=== PATIENT | male | born 1950 | race Caucasian/White ===

== ENCOUNTER → 2017-03-31 | Outpatient (CLI) | payer MEDICARE | END | disposition home or self-care (01) | LOC: LAB 11:20 | PROVIDERS: ATTEND Urology | DX: Z12.5 Encounter for screening for malignant neoplasm of prostate (principal); C61 Malignant neoplasm of prostate | CPT/HCPCS: 36415; G0103 ==

== ENCOUNTER → 2017-10-13 | Outpatient (CLI) | payer MEDICARE ==
[2017-10-13 11:51] LABS: PROSTATE SPECIFIC ANTIGEN 0.13 ng/mL (0.00-4.00)
== END | disposition home or self-care (01) ==
LOC: LAB 10:29
DX: Z12.5 Encounter for screening for malignant neoplasm of prostate (principal); C61 Malignant neoplasm of prostate
CPT/HCPCS: 36415; G0103

== ENCOUNTER 2019-02-11 21:58 | Inpatient (IN) | payer MEDICARE ==
[~2019-02-11] VITALS: Ht 180.3 cm; Wt 114.0 kg
[2019-02-11 22:41] LABS: BASO # 0.1 x10^3/uL (0.0-0.2); BASO % 1 % (0-3); EOS # 0.2 x10^3/uL (0.0-0.7); EOS % 3 % (0-3); HEMATOCRIT 43.6 % (39.0-53.0); LYMPH # 1.1 x10^3/uL (1.0-4.8); LYMPH % 19 % (24-48); MEAN CORPUSCULAR HEMOGLOBIN 32 pg (25-35); MEAN CORPUSCULAR HGB CONC 35 g/dL (31-37); MEAN CORPUSCULAR VOLUME 93 fL (79-100); MONO # 0.4 x10^3/uL (0.0-1.1); MONO % 7 % (0-9); NEUT # 3.8 x10^3uL (1.8-7.7); NEUT % 69 % (31-73); PLATELET COUNT 118 x10^3/uL (140-400); RED BLOOD COUNT 4.68 x10^6/uL (4.30-5.70); RED CELL DISTRIBUTION WIDTH 14.2 % (11.5-14.5); WHITE BLOOD COUNT 5.5 x10^3/uL (4.0-11.0)
[2019-02-11] MEDS ORDERED: IV NORMAL SALINE 1000ML BAG 1,000 ML IV ONE (22:45)
[2019-02-11] MEDS ORDERED: ASPIRIN 325 MG TABLET PO ONE (22:45)
[2019-02-11 22:50] LABS: PROTHROMBIN TIME PATIENT 23.2 SEC (11.7-14.0)
[2019-02-11 22:53] LABS: CALCIUM 9.6 mg/dL (8.5-10.1); CREATININE 1.1 mg/dL (0.7-1.3); GFR 66.4; POTASSIUM 4.6 mmol/L (3.5-5.1)
[2019-02-11 22:59] LABS: ALBUMIN 3.7 g/dL (3.4-5.0); TOTAL PROTEIN 7.3 g/dL (6.4-8.2)
[2019-02-11 23:06] LABS: CREATINE KINASE 74 U/L (39-308)
[2019-02-11 23:28] LABS: BILIRUBIN,URINE NEGATIVE (NEG); CLARITY,URINE CLEAR; COLOR,URINE YELLOW; NITRITE,URINE NEGATIVE (NEG); PROTEIN,URINE NEGATIVE (NEG-TRACE)
[2019-02-11 23:35] LABS: BACTERIA,URINE 0 /HPF (0-FEW); RBC,URINE 0 /HPF (0-2); WBC,URINE 0 /HPF (0-4)
[2019-02-11] MEDS ORDERED: CONTRAST GIVEN. MC PRN (23:45)
[2019-02-11] MEDS ORDERED: IOHEXOL 350 MG/ML 100 ML VIAL. IV ONE (23:45)
[2019-02-11] MEDS ORDERED: FUROSEMIDE 40 MG/4 ML VIAL. IVP ONE (23:45)
[2019-02-12] VITALS (8 sets, daily range): BP systolic 145–186; BP diastolic 73–105
--- NOTE | 2019-02-12 00:16 | RAD ---
PQRS Compliance Statement: One or more of the following individualized dose reduction techniques were utilized for this examination: 1. Automated exposure control 2. Adjustment of the mA and/or kV according to patient size 3. Use of iterative reconstruction technique CT CHEST WITH CONTRAST, PULMONARY ANGIOGRAM History: Dyspnea on exertion. History of DVT. Comparison: None. Technique: Helical CT of the chest was performed after the administration of 100 cc of Omnipaque 350 intravenous contrast according to PE protocol. Axial and coronal reconstructions were obtained. 3-D MIP images were constructed to better evaluate the pulmonary arteries. Findings: Pulmonary arteries are adequately opacified. There is no evidence of pulmonary embolism. There is mediastinal and bilateral hilar adenopathy. There is ectasia of the ascending thoracic aorta. Mild left gynecomastia. There is coronary artery disease. There is cardiomegaly. Mitral annular calcification. No pericardial effusion. There are moderate bilateral pleural effusions. Respiratory motion artifact. Central airways are patent. There is moderate interlobular septal thickening. There are bilateral groundglass opacities. There is reflux of contrast into the IVC and hepatic veins suggesting right heart dysfunction. Gallbladder is contracted. Calcified granulomas in the spleen. Spleen may be enlarged. There is adrenal gland hyperplasia. No acute bone abnormality. IMPRESSION: 1. There is no CT evidence of pulmonary embolus. 2. Moderate bilateral pleural effusions. Moderate interlobular septal thickening. Bilateral groundglass opacities may be alveolar edema or atelectasis. There is cardiomegaly. Findings suggest moderate CHF. 3. Mediastinal and bilateral hilar adenopathy. Recommend CT chest follow-up in 3 months. Electronically signed by: Venkat Kamara MD (02/12/2019 12:13 AM) [facility]
--- NOTE | 2019-02-12 00:19 | PHYS DOC ---
Past Medical History Past Medical History: A-Fib, Cancer, Diabetes-Type II, DVT (right LE), High Cholesterol, Hypertension Past Surgical History: No Surgical History Additional Information: Former smoker Alcohol Use: Rarely Drug Use: None Adult General Chief Complaint Chief Complaint: SHORTNESS OF BREATH HPI HPI 68-year-old male presents with report of progressive shortness of breath which is worse with exertion over the last week.. Patient reports also worse with laying down. Denies fever or chills. Reports nonproductive cough. Patient does report increased leg swelling left greater than right. Patient reports past medical history of DVT to right lower extremity for which patient is currently being treated with Coumadin. Reports he is unsure of his last INR level. Reports compliance with his medications. Patient reports he was previously prescribed a diuretic but denies known history of CHF. Patient reports he is a former smoker. Denies past medical history of emphysema or COPD. Review of Systems Review of Systems Constitutional: Denies fever or chills Eyes: Denies redness or eye pain HENT: Denies nasal congestion or sore throat Respiratory: Reports nonproductive cough and shortness of breath/dyspnea with exertion Cardiovascular: Denies chest pain or palpitations GI: Denies abdominal pain, nausea, or vomiting : Denies dysuria or hematuria Musculoskeletal: Denies back pain; reports bilateral lower extremities edema Integument: Denies rash or skin lesions Neurologic: Denies headache, focal weakness or sensory changes Complete systems were reviewed and found to be within normal limits, except as documented in this note. Current Medications Current Medications Current Medications Medications (Trade) Dose Ordered Sig/Isabela Start Time Stop Time Status Last Admin Dose Admin Aspirin (Michell Aspirin) 325 mg 1X ONCE 02/11/19 22:45 02/11/19 23:07 DC 02/11/19 22:54 325 MG Furosemide (Lasix) 40 mg 1X ONCE 02/11/19 23:45 02/11/19 23:46 DC 02/11/19 23:40 40 MG Info (CONTRAST GIVEN -- Rx MONITORING) 1 each PRN DAILY PRN 02/11/19 23:45 02/13/19 23:44 Iohexol (Omnipaque 350 Mg/ml) 100 ml 1X ONCE 02/11/19 23:45 02/11/19 23:46 DC 02/11/19 23:40 100 ML Lorazepam (Ativan Inj) 1 mg 1X ONCE 02/11/19 23:45 02/11/19 23:46 DC Sodium Chloride 1,000 ml @ 1,000 mls/hr 1X ONCE 02/11/19 22:45 02/11/19 23:44 DC Allergies Allergies Allergies Coded Allergies Type Severity Reaction Last Updated Verified No Known Drug Allergies 02/11/19 No Physical Exam Physical Exam Constitutional: Well developed, well nourished, no acute distress, non-toxic appearance HENT: Normocephalic, atraumatic, oropharynx moist Eyes: Conjunctiva normal, no discharge Neck: Normal range of motion, no tenderness, supple Cardiovascular: Heart rate normal, regular rhythm Lungs & Thorax: Bilateral breath sounds equal but diminished at bases, no wheezing Abdomen: Soft, no tenderness Skin: Warm, dry, no erythema, no rash Back: No tenderness, no CVA tenderness Extremities: No tenderness, ROM intact, 2+ edema: L>R Neurologic: Alert and oriented X 3, normal motor function, normal sensory function, no focal deficits noted Psychologic: Affect anxious, judgement normal Current Patient Data Vital Signs Vital Signs Date Time Temp Pulse Resp B/P (MAP) Pulse Ox O2 Delivery O2 Flow Rate FiO2 02/11/19 23:39 80 26 163/80 (107) Nasal Cannula 3.0 02/11/19 22:00 98.8 92 98.8 Lab Values Laboratory Tests Test 02/11/19 22:11 02/11/19 22:56 White Blood Count 5.5 x10^3/uL (4.0-11.0) Red Blood Count 4.68 x10^6/uL (4.30-5.70) Hemoglobin 15.0 g/dL (13.0-17.5) Hematocrit 43.6 % (39.0-53.0) Mean Corpuscular Volume 93 fL (79-100) Mean Corpuscular Hemoglobin 32 pg (25-35) Mean Corpuscular Hemoglobin Concent 35 g/dL (31-37) Red Cell Distribution Width 14.2 % (11.5-14.5) Platelet Count 118 x10^3/uL (140-400) L Neutrophils (%) (Auto) 69 % (31-73) Lymphocytes (%) (Auto) 19 % (24-48) L Monocytes (%) (Auto) 7 % (0-9) Eosinophils (%) (Auto) 3 % (0-3) Basophils (%) (Auto) 1 % (0-3) Neutrophils # (Auto) 3.8 x10^3uL (1.8-7.7) Lymphocytes # (Auto) 1.1 x10^3/uL (1.0-4.8) Monocytes # (Auto) 0.4 x10^3/uL (0.0-1.1) Eosinophils # (Auto) 0.2 x10^3/uL (0.0-0.7) Basophils # (Auto) 0.1 x10^3/uL (0.0-0.2) Prothrombin Time 23.2 SEC (11.7-14.0) H Prothrombin Time INR 2.1 (0.8-1.1) H PTT 60 SEC (24-38) H Sodium Level 140 mmol/L (136-145) Potassium Level 4.6 mmol/L (3.5-5.1) Chloride Level 103 mmol/L (98-107) Carbon Dioxide Level 26 mmol/L (21-32) Anion Gap 11 (6-14) Blood Urea Nitrogen 16 mg/dL (8-26) Creatinine 1.1 mg/dL (0.7-1.3) Estimated GFR (Cockcroft-Gault) 66.4 BUN/Creatinine Ratio 15 (6-20) Glucose Level 159 mg/dL (70-99) H Lactic Acid Level 3.1 mmol/L (0.4-2.0) H Calcium Level 9.6 mg/dL (8.5-10.1) Magnesium Level 2.0 mg/dL (1.8-2.4) Total Bilirubin 1.0 mg/dL (0.2-1.0) Aspartate Amino Transferase (AST) 25 U/L (15-37) Alanine Aminotransferase (ALT) 42 U/L (16-63) Alkaline Phosphatase 71 U/L (46-116) Creatine Kinase 74 U/L (39-308) Creatine Kinase MB (Mass) 2.7 ng/mL (0.0-3.6) Creatine Kinase MB Relative Index % (0-4) Troponin I Quantitative 0.026 ng/mL (0.000-0.055) BG-Tfg-I-Type Natriuretic Peptide 1971 pg/mL (0-124) H Total Protein 7.3 g/dL (6.4-8.2) Albumin 3.7 g/dL (3.4-5.0) Albumin/Globulin Ratio 1.0 (1.0-1.7) Lipase 153 U/L (73-393) Urine Collection Type Unknown Urine Color Yellow Urine Clarity Clear Urine pH 6.0 Urine Specific Robinson 1.010 Urine Protein Negative mg/dL (NEG-TRACE) Urine Glucose (UA) Negative mg/dL (NEG) Urine Ketones (Stick) Negative mg/dL (NEG) Urine Blood Negative (NEG) Urine Nitrite Negative (NEG) Urine Bilirubin Negative (NEG) Urine Urobilinogen Dipstick 1.0 mg/dL (0.2 mg/dL) Urine Leukocyte Esterase Negative (NEG) Urine RBC 0 /HPF (0-2) Urine WBC 0 /HPF (0-4) Urine Bacteria 0 /HPF (0-FEW) Laboratory Tests 02/11/19 22:11 Laboratory Tests 02/11/19 22:11 EKG EKG @2208 Afib at 82bpm, NO ST elevation, nonspecific t wave inversions to I and aVL Radiology/Procedures Radiology/Procedures PROCEDURE: CT ANGIOGRAPHY CHEST PQRS Compliance Statement: One or more of the following individualized dose reduction techniques were utilized for this examination: 1. Automated exposure control 2. Adjustment of the mA and/or kV according to patient size 3. Use of iterative reconstruction technique CT CHEST WITH CONTRAST, PULMONARY ANGIOGRAM History: Dyspnea on exertion. History of DVT. Comparison: None. Technique: Helical CT of the chest was performed after the administration of 100 cc of Omnipaque 350 intravenous contrast according to PE protocol. Axial and coronal reconstructions were obtained. 3-D MIP images were constructed to better evaluate the pulmonary arteries. Findings: Pulmonary arteries are adequately opacified. There is no evidence of pulmonary embolism. There is mediastinal and bilateral hilar adenopathy. There is ectasia of the ascending thoracic aorta. Mild left gynecomastia. There is coronary artery disease. There is cardiomegaly. Mitral annular calcification. No pericardial effusion. There are moderate bilateral pleural effusions. Respiratory motion artifact. Central airways are patent. There is moderate interlobular septal thickening. There are bilateral groundglass opacities. There is reflux of contrast into the IVC and hepatic veins suggesting right heart dysfunction. Gallbladder is contracted. Calcified granulomas in the spleen. Spleen may be enlarged. There is adrenal gland hyperplasia. No acute bone abnormality. IMPRESSION: 1. There is no CT evidence of pulmonary embolus. 2. Moderate bilateral pleural effusions. Moderate interlobular septal thickening. Bilateral groundglass opacities may be alveolar edema or atelectasis. There is cardiomegaly. Findings suggest moderate CHF. 3. Mediastinal and bilateral hilar adenopathy. Recommend CT chest follow-up in 3 months. Electronically signed by: Venkat Kamara MD (02/12/2019 12:13 AM) [facility] Course & Med Decision Making Course & Med Decision Making Pertinent Labs and Imaging studies reviewed. (See chart for details) Patient presents with one-week history of progressive dyspnea with associated orthopnea and increased lower extremity edema. Patient does report past medical history of DVT for which patient is currently treated with Coumadin. Patient also with past medical history of high blood pressure, diabetes, high cholesterol, and former smoking. EKG with rate controlled A. fib. Labs obtained and posted to chart. BMP significantly elevated. Troponin within normal limits. CTA chest without findings consistent for PE but noted increased vascular congestion. Concern for possible CHF. Lasix provided. Lactic acid also elevated however patient without SIRS criteria or source of infection. Repeat lactic acid and serial troponins ordered. Patient requiring admission for further evaluation and treatment. Discussed with Dr. Antonio (hospitalist) who is in agreement with admission. Discussed findings and plan with patient and family, who acknowledge understanding and agreement. Dragon Disclaimer Dragon Disclaimer This electronic medical record was generated, in whole or in part, using a voice recognition dictation system. Departure Departure Impression: Primary Impression: CHF exacerbation Additional Impression: Lactic acidosis Disposition: ADMITTED INPATIENT Admitting Physician: ASHLEY (Paco) Condition: GUARDED Referrals: HEIDI BALLESTEROS MD (PCP) The HEART Score for CP Pts HEART Score for Chest Pain: HEART Score for Chest Pain Response (Comments) Value History Moderately Suspicious 1 ECG Normal 0 Age > 65 2 Risk Factors >3 Risk Factors or Hx CAD 2 Troponin < Normal Limit 0 Total 5 Risk Factors: Risk Factors: DM, Current or recent (<one month) smoker, HTN, HLP, family history of CAD, obesity. Risk Scores: Score 0 - 3: 2.5% MACE over next 6 weeks - Discharge Home Score 4 - 6: 20.3% MACE over next 6 weeks - Admit for Clinical Observation Score 7 - 10: 72.7% MACE over next 6 weeks - Early Invasive Strategies Problem Qualifiers Primary Impression: CHF exacerbation Heart failure type: unspecified Qualified Codes: I50.9 - Heart failure, unspecified ERNESTO REDMAN DO Feb 12, 2019 00:19
[2019-02-12] MEDS ORDERED: ONDANSETRON PF 4 MG/2 ML VIAL. IV PRN (00:30)
[2019-02-12] MEDS ORDERED: DEXTROSE 50% 25 GM / 50ML DISP.SYRIN. IV PRN ×2 (00:30→12:45)
--- NOTE | 2019-02-12 01:30 | NUR ---
The patient, VANCE ZAVALA, 68 y/o, M admitted by JUJU LUU MD, was given written information regarding hospital policies, unit procedures and contact persons. 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 ADMIT PACKET GIVEN AND CHF BOOKLET GIVEN. AND BOTH EXPLAINED.COMPLETED. ASSESSMENT AND HISTORY COMPLETED. LCRN Valuables were checked and DOCUMENTED IN THE EMR .
[2019-02-12] MEDS ORDERED: CYAN10005 PO (04:29)
[2019-02-12] MEDS ORDERED: SIMV10TA3 PO (04:29)
[2019-02-12] MEDS ORDERED: ASPI-630 PO (04:29)
[2019-02-12] MEDS ORDERED: WARF7.5T45 PO (04:29)
[2019-02-12] MEDS ORDERED: DIGO125T PO (04:29)
[2019-02-12] MEDS ORDERED: LISI10TA2 PO (04:29)
[2019-02-12] MEDS ORDERED: GABA300C18 PO (04:29)
[2019-02-12] MEDS ORDERED: GABA-585 PO (04:29)
[2019-02-12] MEDS ORDERED: GLIM2TAB2 PO (04:29)
[2019-02-12] MEDS ORDERED: METF850T8 PO (04:29)
[2019-02-12] MEDS ORDERED: WARF-31 PO (04:29)
[2019-02-12] MEDS ORDERED: hydrALAZINE 20 MG/ML VIAL. IVP PRN (05:15)
[2019-02-12] MEDS ORDERED: FUROSEMIDE 40 MG/4 ML VIAL. IVP ONE (05:15)
[2019-02-12 07:20] LABS: DIG 0.3 ng/mL (0.9-2.0)
--- NOTE | 2019-02-12 07:49 | PDOC1 ---
History and Physical Date of Admission Date of Admission DATE: 02/12/19 TIME: 07:47 Identification/Chief Complaint Chief Complaint Shortness of breath Source Source: Patient History of Present Illness History of Present Illness Mr Sears is a 68yo M w/ PMHx Afib, DM2, DVT RLE (on coumadin), HLD, HTN who presents with one-week history of progressive dyspnea with associated orthopnea and increased lower extremity edema. Patient does report past medical history of DVT for which patient is currently treated with Coumadin. The patient had been treated with home medications of Lasix which had been tapered off for the last 1-2 months. He was treated with Lasix overnight with good urine output and is feeling significantly better today. He denies chest pain. EKG with rate controlled A. fib. Labs obtained and posted to chart. BMP significantly elevated. Troponin within normal limits. CTA chest without findings consistent for PE but noted increased vascular congestion. Lactic acid also elevated however patient without SIRS criteria or source of infection. Repeat lactic acid and serial troponins ordered. Past Medical History Cardiovascular: AFIB, HTN, Hyperlipidemia Pulmonary: No pertinent hx GI: No pertinent hx Heme/Onc: No pertinent hx Hepatobiliary: No pertinent hx Psych: No pertinent hx Rheumatologic: No pertinent hx Infectious disease: No pertinent hx ENT: No pertinent hx Renal/: No pertinent hx Endocrine: Diabetes Past Surgical History Past Surgical History: No pertinent history Family History Family History: Coronary Artery Disease, Diabetes, High Cholestrol Social History Smoke: Quit ALCOHOL: rare Drugs: None Current Medications Current Medications Current Medications Aspirin (Michell Aspirin) 325 mg 1X ONCE PO Last administered on 02/11/19at 22:54; Start 02/11/19 at 22:45; Stop 02/11/19 at 23:07; Status DC Sodium Chloride 1,000 ml @ 1,000 mls/hr 1X ONCE IV ; Start 02/11/19 at 22:45; Stop 02/11/19 at 23:44; Status DC Iohexol (Omnipaque 350 Mg/ml) 100 ml 1X ONCE IV Last administered on 02/11/19at 23:40; Start 02/11/19 at 23:45; Stop 02/11/19 at 23:46; Status DC Furosemide (Lasix) 40 mg 1X ONCE IVP Last administered on 02/11/19at 23:40; Start 02/11/19 at 23:45; Stop 02/11/19 at 23:46; Status DC Lorazepam (Ativan Inj) 1 mg 1X ONCE IV ; Start 02/11/19 at 23:45; Stop 02/11/19 at 23:46; Status DC Info (CONTRAST GIVEN -- Rx MONITORING) 1 each PRN DAILY PRN MC SEE COMMENTS; Start 02/11/19 at 23:45; Stop 02/13/19 at 23:44 Ondansetron HCl (Zofran) 4 mg PRN Q8HRS PRN IV NAUSEA/VOMITING; Start 02/12/19 at 00:30; Stop 02/13/19 at 00:29 Insulin Human Lispro (HumaLOG) 0-5 UNITS TIDWMEALS SQ ; Start 02/12/19 at 08:00 Dextrose (Dextrose 50%-Water Syringe) 12.5 gm PRN Q15MIN PRN IV SEE COMMENTS; Start 02/12/19 at 00:30 Furosemide (Lasix) 40 mg 1X ONCE IVP Last administered on 02/12/19at 05:28; Start 02/12/19 at 05:15; Stop 02/12/19 at 05:32; Status DC Hydralazine HCl (Apresoline Inj) 10 mg PRN Q4HRS PRN IVP ELEVATED BP, SEE COMMENTS; Start 02/12/19 at 05:15 Active Scripts Active Reported Aspirin 81 Mg Tab.chew 81 Mg PO DAILY Metformin Hcl 850 Mg Tablet 850 Mg PO BIDWMEALS Simvastatin 10 Mg Tablet 10 Mg PO HS Warfarin Sodium 7.5 Mg Tablet 7.5 Mg PO QTH Warfarin Sodium 5 Mg Tablet 5 Mg PO DAILY Glimepiride 2 Mg Tablet 2 Mg PO DAILY Digoxin 125 Mcg Tablet 125 Mcg PO DAILY Vitamin B-12 (Cyanocobalamin (Vitamin B-12)) 1,000 Mcg Tablet 1 Tab PO DAILY Gabapentin (Gabapentin) 100 Mg Capsule 150 Mg PO HS Gabapentin (Gabapentin) 300 Mg Capsule 300 Mg PO DAILY Lisinopril 10 Mg Tablet 10 Mg PO DAILY Allergies Allergies: Coded Allergies: No Known Drug Allergies (Unverified , 02/11/19) ROS General: YES: Fatigue, Malaise; No: Chills, Night Sweats, Appetite, Other PSYCHOLOGICAL ROS: No: Anxiety, Behavioral Disorder, Concentration difficultie, Decreased libido, Depression, Disorientation, Hallucinations, Hostility, Irritablity, Memory difficulties, Mood Swings, Obsessive thoughts, Physical abuse, Sexual abuse, Sleep disturbances, Suicidal ideation, Other Eyes: No Blurry vision, No Decreased vision, No Double vision, No Dry eyes, No Excessive tearing, No Eye Pain, No Itchy Eyes, No Loss of vision, No Photophobia, No Scotomata, No Uses contacts, No Uses glasses, No Other HEENT: No: Heacaches, Visual Changes, Hearing change, Nasal congestion, Nasal discharge, Oral lesions, Sinus pain, Sore Throat, Epistaxis, Sneezing, Snoring, Tinnitus, Vertigo, Vocal changes, Other ALLERGY AND IMMUNOLOGY: No: Hives, Insect Bite Sensitivity, Itchy/Watery Eyes, Nasal Congestion, Post Nasal Drip, Seasonal Allergies, Other Hematological and Lymphatic: No: Bleeding Problems, Blood Clots, Blood Transfusions, Brusing, Night Sweats, Pallor, Swollen Lymph Nodes, Other ENDOCRINE: No: Breast Changes, Galactorrhea, Hair Pattern Changes, Hot Flashes, Malaise/lethargy, Mood Swings, Palpitations, Polydipsia/polyuria, Skin Changes, Temperature Intolerance, Unexpected Weight Changes, Other Breast: No New/Changing Breast Lumps, No Nipple changes, No Nipple discharge, No Other Respiratory: YES: Shortness of breath, SOB with excertion; No: Cough, Hemoptysis, Orthopnea, Pleuritic Pain, Sputum Changes, Stridor, Tachypnea, Wheezing, Other Cardiovascular: yes Orthopnea, yes Edema; No Chest Pain, No Palpitations, No Paroxysmal Noc. Dyspnea, No Lt Headedness, No Other Gastrointestinal: No Nausea, No Vomiting, No Abdominal Pain, No Diarrhea, No Constipation, No Melena, No Hematochezia, No Other Genitourinary: No Dysuria, No Frequency, No Incontinence, No Hematuria, No Retention, No Discharge, No Urgency, No Pain, No Flank Pain, No Other, No , No , No , No , No , No , No Musculoskeletal: No Gait Disturbance, No Joint Pain, No Joint Stiffness, No Joint Swelling, No Muscle Pain, No Muscular Weakness, No Pain In:, No Swelling In:, No Other Neurological: No Behavorial Changes, No Bowel/Bladder ControlChng, No Confusion, No Dizziness, No Gait Disturbance, No Headaches, No Impaired Coord/balance, No Memory Loss, No Numbness/Tingling, No Seizures, No Speech Problems, No Tremors, No Visual Changes, No Weakness, No Other Skin: No Dry Skin, No Eczema, No Hair Changes, No Lumps, No Mole Changes, No M ottling, No Nail Changes, No Pruritus, No Rash, No Skin Lesion Changes, No Other, No Acne Physical Exam General: Alert, Oriented X3, Cooperative, No acute distress HEENT: Atraumatic, PERRLA, EOMI, Mucous membr. moist/pink Lungs: Clear to auscultation, Normal air movement Heart: S1S2, irregularly irregular Abdomen: Normal bowel sounds, Soft, No tenderness, No hepatosplenomegaly, No masses Rectal Exam: not examined Extremities: Other (2+ edema) Skin: No rashes, No breakdown, No significant lesion Neuro: Normal gait, Normal speech, Strength at 5/5 X4 ext, Normal tone, Sensation intact, Cranial nerves 3-12 NL, Reflexes 2+ Psych/Mental Status: Mental status NL, Mood NL Vitals Vitals Vital Signs Date Time Temp Pulse Resp B/P (MAP) Pulse Ox O2 Delivery O2 Flow Rate FiO2 02/12/19 03:53 Nasal Cannula 3.0 02/12/19 03:40 97.4 78 18 169/102 (124) 97 97.4 Labs Labs Laboratory Tests Test 02/11/19 22:11 02/11/19 22:56 02/12/19 02:15 02/12/19 06:35 White Blood Count 5.5 x10^3/uL (4.0-11.0) Red Blood Count 4.68 x10^6/uL (4.30-5.70) Hemoglobin 15.0 g/dL (13.0-17.5) Hematocrit 43.6 % (39.0-53.0) Mean Corpuscular Volume 93 fL (79-100) Mean Corpuscular Hemoglobin 32 pg (25-35) Mean Corpuscular Hemoglobin Concent 35 g/dL (31-37) Red Cell Distribution Width 14.2 % (11.5-14.5) Platelet Count 118 x10^3/uL (140-400) Neutrophils (%) (Auto) 69 % (31-73) Lymphocytes (%) (Auto) 19 % (24-48) Monocytes (%) (Auto) 7 % (0-9) Eosinophils (%) (Auto) 3 % (0-3) Basophils (%) (Auto) 1 % (0-3) Neutrophils # (Auto) 3.8 x10^3uL (1.8-7.7) Lymphocytes # (Auto) 1.1 x10^3/uL (1.0-4.8) Monocytes # (Auto) 0.4 x10^3/uL (0.0-1.1) Eosinophils # (Auto) 0.2 x10^3/uL (0.0-0.7) Basophils # (Auto) 0.1 x10^3/uL (0.0-0.2) Prothrombin Time 23.2 SEC (11.7-14.0) Prothromb Time International Ratio 2.1 (0.8-1.1) Activated Partial Thromboplast Time 60 SEC (24-38) Sodium Level 140 mmol/L (136-145) Potassium Level 4.6 mmol/L (3.5-5.1) Chloride Level 103 mmol/L (98-107) Carbon Dioxide Level 26 mmol/L (21-32) Anion Gap 11 (6-14) Blood Urea Nitrogen 16 mg/dL (8-26) Creatinine 1.1 mg/dL (0.7-1.3) Estimated GFR (Cockcroft-Gault) 66.4 BUN/Creatinine Ratio 15 (6-20) Glucose Level 159 mg/dL (70-99) Lactic Acid Level 3.1 mmol/L (0.4-2.0) 1.2 mmol/L (0.4-2.0) Calcium Level 9.6 mg/dL (8.5-10.1) Magnesium Level 2.0 mg/dL (1.8-2.4) Total Bilirubin 1.0 mg/dL (0.2-1.0) Aspartate Amino Transf (AST/SGOT) 25 U/L (15-37) Alanine Aminotransferase (ALT/SGPT) 42 U/L (16-63) Alkaline Phosphatase 71 U/L (46-116) Creatine Kinase 74 U/L (39-308) Creatine Kinase MB (Mass) 2.7 ng/mL (0.0-3.6) Creatine Kinase MB Relative Index % (0-4) Troponin I Quantitative 0.026 ng/mL (0.000-0.055) 0.045 ng/mL (0.000-0.055) 0.038 ng/mL (0.000-0.055) IC-Pur-H-Type Natriuretic Peptide 1971 pg/mL (0-124) Total Protein 7.3 g/dL (6.4-8.2) Albumin 3.7 g/dL (3.4-5.0) Albumin/Globulin Ratio 1.0 (1.0-1.7) Lipase 153 U/L (73-393) Urine Collection Type Unknown Urine Color Yellow Urine Clarity Clear Urine pH 6.0 Urine Specific [place] 1.010 Urine Protein Negative mg/dL (NEG-TRACE) Urine Glucose (UA) Negative mg/dL (NEG) Urine Ketones (Stick) Negative mg/dL (NEG) Urine Blood Negative (NEG) Urine Nitrite Negative (NEG) Urine Bilirubin Negative (NEG) Urine Urobilinogen Dipstick 1.0 mg/dL (0.2 mg/dL) Urine Leukocyte Esterase Negative (NEG) Urine RBC 0 /HPF (0-2) Urine WBC 0 /HPF (0-4) Urine Bacteria 0 /HPF (0-FEW) Digoxin Level 0.3 ng/mL (0.9-2.0) Digoxin Last Dose Date Unknown Digoxin Last Dose Time Unknown Laboratory Tests Test 02/11/19 22:11 02/11/19 22:56 02/12/19 02:15 02/12/19 06:35 White Blood Count 5.5 x10^3/uL (4.0-11.0) Red Blood Count 4.68 x10^6/uL (4.30-5.70) Hemoglobin 15.0 g/dL (13.0-17.5) Hematocrit 43.6 % (39.0-53.0) Mean Corpuscular Volume 93 fL (79-100) Mean Corpuscular Hemoglobin 32 pg (25-35) Mean Corpuscular Hemoglobin Concent 35 g/dL (31-37) Red Cell Distribution Width 14.2 % (11.5-14.5) Platelet Count 118 x10^3/uL (140-400) Neutrophils (%) (Auto) 69 % (31-73) Lymphocytes (%) (Auto) 19 % (24-48) Monocytes (%) (Auto) 7 % (0-9) Eosinophils (%) (Auto) 3 % (0-3) Basophils (%) (Auto) 1 % (0-3) Neutrophils # (Auto) 3.8 x10^3uL (1.8-7.7) Lymphocytes # (Auto) 1.1 x10^3/uL (1.0-4.8) Monocytes # (Auto) 0.4 x10^3/uL (0.0-1.1) Eosinophils # (Auto) 0.2 x10^3/uL (0.0-0.7) Basophils # (Auto) 0.1 x10^3/uL (0.0-0.2) Prothrombin Time 23.2 SEC (11.7-14.0) Prothromb Time International Ratio 2.1 (0.8-1.1) Activated Partial Thromboplast Time 60 SEC (24-38) Sodium Level 140 mmol/L (136-145) Potassium Level 4.6 mmol/L (3.5-5.1) Chloride Level 103 mmol/L (98-107) Carbon Dioxide Level 26 mmol/L (21-32) Anion Gap 11 (6-14) Blood Urea Nitrogen 16 mg/dL (8-26) Creatinine 1.1 mg/dL (0.7-1.3) Estimated GFR (Cockcroft-Gault) 66.4 BUN/Creatinine Ratio 15 (6-20) Glucose Level 159 mg/dL (70-99) Lactic Acid Level 3.1 mmol/L (0.4-2.0) 1.2 mmol/L (0.4-2.0) Calcium Level 9.6 mg/dL (8.5-10.1) Magnesium Level 2.0 mg/dL (1.8-2.4) Total Bilirubin 1.0 mg/dL (0.2-1.0) Aspartate Amino Transf (AST/SGOT) 25 U/L (15-37) Alanine Aminotransferase (ALT/SGPT) 42 U/L (16-63) Alkaline Phosphatase 71 U/L (46-116) Creatine Kinase 74 U/L (39-308) Creatine Kinase MB (Mass) 2.7 ng/mL (0.0-3.6) Creatine Kinase MB Relative Index % (0-4) Troponin I Quantitative 0.026 ng/mL (0.000-0.055) 0.045 ng/mL (0.000-0.055) 0.038 ng/mL (0.000-0.055) DX-Nye-Q-Type Natriuretic Peptide 1971 pg/mL (0-124) Total Protein 7.3 g/dL (6.4-8.2) Albumin 3.7 g/dL (3.4-5.0) Albumin/Globulin Ratio 1.0 (1.0-1.7) Lipase 153 U/L (73-393) Urine Collection Type Unknown Urine Color Yellow Urine Clarity Clear Urine pH 6.0 Urine Specific [place] 1.010 Urine Protein Negative mg/dL (NEG-TRACE) Urine Glucose (UA) Negative mg/dL (NEG) Urine Ketones (Stick) Negative mg/dL (NEG) Urine Blood Negative (NEG) Urine Nitrite Negative (NEG) Urine Bilirubin Negative (NEG) Urine Urobilinogen Dipstick 1.0 mg/dL (0.2 mg/dL) Urine Leukocyte Esterase Negative (NEG) Urine RBC 0 /HPF (0-2) Urine WBC 0 /HPF (0-4) Urine Bacteria 0 /HPF (0-FEW) Digoxin Level 0.3 ng/mL (0.9-2.0) Digoxin Last Dose Date Unknown Digoxin Last Dose Time Unknown Images Images CTPA - 1. There is no CT evidence of pulmonary embolus. 2. Moderate bilateral pleural effusions. Moderate interlobular septal thickening. Bilateral groundglass opacities may be alveolar edema or atelectasis. There is cardiomegaly. Findings suggest moderate CHF. 3. Mediastinal and bilateral hilar adenopathy. Recommend CT chest follow-up in 3 months. VTE Prophylaxis Ordered VTE Prophylaxis Devices: Yes VTE Pharmacological Prophylaxi: Yes Assessment/Plan Assessment/Plan A/P: Acute on chronic heart failure - Uncertain if systolic or diastolic. Patient had been tapered off Lasix in the recent past. Good response to Lasix overnight. echocardiogram for LV function. Cardiology consulted. Needs BB therapy, will start tomorrow after 48 hours of CHF treatment Chronic atrial fibrillation - on coumadin, digoxin. Cardiology following. Rate controlled. Uncertain why he is not on a beta herlinda, will initiate tomorrow when his CHF is better managed History of right lower extremity DVT - therapeutic coumadin Hypertension - only on lasix apparently. Start low dose ARB and BB for CHF treatment Hyperlipidemia - goal LDL < 70mg/dL with DM2 history Diabetes mellitus - cont metformin, will place on sliding scale Lactic acidosis - likely from metformin while taking PO poorly FEN - ADA cardiac diet PPX - coumadin FULL CODE inpatient for acute CHF exacerbation, newly diagnosed. LAWRENCE MEJIA MD Feb 12, 2019 07:48
[2019-02-12] MEDS: INSULIN LISPRO 300 UNITS/3 ML INSULN.PEN. SQ SCH ×3 (08:00→17:00)
--- NOTE | 2019-02-12 12:09 | RAD ---
EXAM: Bilateral lower extremity venous Doppler. HISTORY: Bilateral lower extremity pain/swelling. Prior deep venous thrombosis. COMPARISON: None. FINDINGS: Grayscale and Doppler analysis of the both lower extremity deep venous systems was performed with graded compression and augmentation. The common femoral, greater saphenous, superficial femoral, popliteal and calf veins were assessed. There is no evidence of deep venous thrombosis. IMPRESSION: 1. No evidence of deep venous thrombosis. Electronically signed by: Sean Calix MD (02/12/2019 12:07 PM) [facility]
--- NOTE | 2019-02-12 12:09 | PDOC2 ---
CONSULT Date of Consult Date of Consult DATE: 02/12/19 TIME: 12:03 Reason for Consult Reason for Consult: Heart failure, atrial fibrillation Referring Physician Referring Physician: Dr. Antonio Identification/Chief Complaint Chief Complaint Shortness of breath Source Source: Chart review, Patient History of Present Illness Reason for Visit: The patient is a 68-year-old male who presented to the emergency room with episodes of increasing shortness of breath. Patient has a history of rate controlled atrial fibrillation as well as hypertension and hyperlipidemia. Initial EKG showed atrial fibrillation rate of 80 with no acute ischemic changes. CT scan chest scan showed moderate bilateral pleural effusions. It showed no pulmonary emboli. The patient had been treated with home medications of Lasix which had been tapered off for the last 1-2 months. He was treated with Lasix overnight with good urine output and is feeling significantly better today. He denies chest pain. Past Medical History Cardiovascular: AFIB, CHF, HTN, Hyperlipidemia, Other (right lower extremity DVT.) Endocrine: Diabetes Past Surgical History Past Surgical History: No pertinent history Family History Family History: Hypertension Social History Quit ALCOHOL: rare Current Medications Current Medications Current Medications Aspirin (Michell Aspirin) 325 mg 1X ONCE PO Last administered on 02/11/19at 22:54; Start 02/11/19 at 22:45; Stop 02/11/19 at 23:07; Status DC Sodium Chloride 1,000 ml @ 1,000 mls/hr 1X ONCE IV ; Start 02/11/19 at 22:45; Stop 02/11/19 at 23:44; Status DC Iohexol (Omnipaque 350 Mg/ml) 100 ml 1X ONCE IV Last administered on 02/11/19at 23:40; Start 02/11/19 at 23:45; Stop 02/11/19 at 23:46; Status DC Furosemide (Lasix) 40 mg 1X ONCE IVP Last administered on 02/11/19at 23:40; Start 02/11/19 at 23:45; Stop 02/11/19 at 23:46; Status DC Lorazepam (Ativan Inj) 1 mg 1X ONCE IV ; Start 02/11/19 at 23:45; Stop 02/11/19 at 23:46; Status DC Info (CONTRAST GIVEN -- Rx MONITORING) 1 each PRN DAILY PRN MC SEE COMMENTS; Start 02/11/19 at 23:45; Stop 02/13/19 at 23:44 Ondansetron HCl (Zofran) 4 mg PRN Q8HRS PRN IV NAUSEA/VOMITING; Start 02/12/19 at 00:30; Stop 02/13/19 at 00:29 Insulin Human Lispro (HumaLOG) 0-5 UNITS TIDWMEALS SQ ; Start 02/12/19 at 08:00 Dextrose (Dextrose 50%-Water Syringe) 12.5 gm PRN Q15MIN PRN IV SEE COMMENTS; Start 02/12/19 at 00:30 Furosemide (Lasix) 40 mg 1X ONCE IVP Last administered on 02/12/19at 05:28; Start 02/12/19 at 05:15; Stop 02/12/19 at 05:32; Status DC Hydralazine HCl (Apresoline Inj) 10 mg PRN Q4HRS PRN IVP ELEVATED BP, SEE COMMENTS; Start 02/12/19 at 05:15 Active Scripts Active Reported Aspirin 81 Mg Tab.chew 81 Mg PO DAILY Metformin Hcl 850 Mg Tablet 850 Mg PO BIDWMEALS Simvastatin 10 Mg Tablet 10 Mg PO HS Warfarin Sodium 7.5 Mg Tablet 7.5 Mg PO QTH Warfarin Sodium 5 Mg Tablet 5 Mg PO DAILY Glimepiride 2 Mg Tablet 2 Mg PO DAILY Digoxin 125 Mcg Tablet 125 Mcg PO DAILY Vitamin B-12 (Cyanocobalamin (Vitamin B-12)) 1,000 Mcg Tablet 1 Tab PO DAILY Gabapentin (Gabapentin) 100 Mg Capsule 150 Mg PO HS Gabapentin (Gabapentin) 300 Mg Capsule 300 Mg PO DAILY Lisinopril 10 Mg Tablet 10 Mg PO DAILY Allergies Allergies: Coded Allergies: No Known Drug Allergies (Unverified , 02/11/19) ROS General: YES: Fatigue Respiratory: YES: Shortness of breath, SOB with excertion Physical Exam General: mild distress HEENT: Atraumatic Lungs: Other (mildly decreased breath sounds) Heart: Other (irregularly irregular) Abdomen: Normal bowel sounds Vitals VITALS Vital Signs Date Time Temp Pulse Resp B/P (MAP) Pulse Ox O2 Delivery O2 Flow Rate FiO2 02/12/19 08:00 Nasal Cannula 3.0 02/12/19 03:40 97.4 78 18 169/102 (124) 97 97.4 Labs Labs Laboratory Tests Test 02/11/19 22:11 02/11/19 22:56 02/12/19 02:15 02/12/19 06:35 White Blood Count 5.5 x10^3/uL (4.0-11.0) Red Blood Count 4.68 x10^6/uL (4.30-5.70) Hemoglobin 15.0 g/dL (13.0-17.5) Hematocrit 43.6 % (39.0-53.0) Mean Corpuscular Volume 93 fL (79-100) Mean Corpuscular Hemoglobin 32 pg (25-35) Mean Corpuscular Hemoglobin Concent 35 g/dL (31-37) Red Cell Distribution Width 14.2 % (11.5-14.5) Platelet Count 118 x10^3/uL (140-400) Neutrophils (%) (Auto) 69 % (31-73) Lymphocytes (%) (Auto) 19 % (24-48) Monocytes (%) (Auto) 7 % (0-9) Eosinophils (%) (Auto) 3 % (0-3) Basophils (%) (Auto) 1 % (0-3) Neutrophils # (Auto) 3.8 x10^3uL (1.8-7.7) Lymphocytes # (Auto) 1.1 x10^3/uL (1.0-4.8) Monocytes # (Auto) 0.4 x10^3/uL (0.0-1.1) Eosinophils # (Auto) 0.2 x10^3/uL (0.0-0.7) Basophils # (Auto) 0.1 x10^3/uL (0.0-0.2) Prothrombin Time 23.2 SEC (11.7-14.0) Prothromb Time International Ratio 2.1 (0.8-1.1) Activated Partial Thromboplast Time 60 SEC (24-38) Sodium Level 140 mmol/L (136-145) Potassium Level 4.6 mmol/L (3.5-5.1) Chloride Level 103 mmol/L (98-107) Carbon Dioxide Level 26 mmol/L (21-32) Anion Gap 11 (6-14) Blood Urea Nitrogen 16 mg/dL (8-26) Creatinine 1.1 mg/dL (0.7-1.3) Estimated GFR (Cockcroft-Gault) 66.4 BUN/Creatinine Ratio 15 (6-20) Glucose Level 159 mg/dL (70-99) Lactic Acid Level 3.1 mmol/L (0.4-2.0) 1.2 mmol/L (0.4-2.0) Calcium Level 9.6 mg/dL (8.5-10.1) Magnesium Level 2.0 mg/dL (1.8-2.4) Total Bilirubin 1.0 mg/dL (0.2-1.0) Aspartate Amino Transf (AST/SGOT) 25 U/L (15-37) Alanine Aminotransferase (ALT/SGPT) 42 U/L (16-63) Alkaline Phosphatase 71 U/L (46-116) Creatine Kinase 74 U/L (39-308) Creatine Kinase MB (Mass) 2.7 ng/mL (0.0-3.6) Creatine Kinase MB Relative Index % (0-4) Troponin I Quantitative 0.026 ng/mL (0.000-0.055) 0.045 ng/mL (0.000-0.055) 0.038 ng/mL (0.000-0.055) TQ-Cnc-A-Type Natriuretic Peptide 1971 pg/mL (0-124) Total Protein 7.3 g/dL (6.4-8.2) Albumin 3.7 g/dL (3.4-5.0) Albumin/Globulin Ratio 1.0 (1.0-1.7) Lipase 153 U/L (73-393) Urine Collection Type Unknown Urine Color Yellow Urine Clarity Clear Urine pH 6.0 Urine Specific [place] 1.010 Urine Protein Negative mg/dL (NEG-TRACE) Urine Glucose (UA) Negative mg/dL (NEG) Urine Ketones (Stick) Negative mg/dL (NEG) Urine Blood Negative (NEG) Urine Nitrite Negative (NEG) Urine Bilirubin Negative (NEG) Urine Urobilinogen Dipstick 1.0 mg/dL (0.2 mg/dL) Urine Leukocyte Esterase Negative (NEG) Urine RBC 0 /HPF (0-2) Urine WBC 0 /HPF (0-4) Urine Bacteria 0 /HPF (0-FEW) Digoxin Level 0.3 ng/mL (0.9-2.0) Digoxin Last Dose Date Unknown Digoxin Last Dose Time Unknown Laboratory Tests Test 02/11/19 22:11 02/11/19 22:56 02/12/19 02:15 02/12/19 06:35 White Blood Count 5.5 x10^3/uL (4.0-11.0) Red Blood Count 4.68 x10^6/uL (4.30-5.70) Hemoglobin 15.0 g/dL (13.0-17.5) Hematocrit 43.6 % (39.0-53.0) Mean Corpuscular Volume 93 fL (79-100) Mean Corpuscular Hemoglobin 32 pg (25-35) Mean Corpuscular Hemoglobin Concent 35 g/dL (31-37) Red Cell Distribution Width 14.2 % (11.5-14.5) Platelet Count 118 x10^3/uL (140-400) Neutrophils (%) (Auto) 69 % (31-73) Lymphocytes (%) (Auto) 19 % (24-48) Monocytes (%) (Auto) 7 % (0-9) Eosinophils (%) (Auto) 3 % (0-3) Basophils (%) (Auto) 1 % (0-3) Neutrophils # (Auto) 3.8 x10^3uL (1.8-7.7) Lymphocytes # (Auto) 1.1 x10^3/uL (1.0-4.8) Monocytes # (Auto) 0.4 x10^3/uL (0.0-1.1) Eosinophils # (Auto) 0.2 x10^3/uL (0.0-0.7) Basophils # (Auto) 0.1 x10^3/uL (0.0-0.2) Prothrombin Time 23.2 SEC (11.7-14.0) Prothromb Time International Ratio 2.1 (0.8-1.1) Activated Partial Thromboplast Time 60 SEC (24-38) Sodium Level 140 mmol/L (136-145) Potassium Level 4.6 mmol/L (3.5-5.1) Chloride Level 103 mmol/L (98-107) Carbon Dioxide Level 26 mmol/L (21-32) Anion Gap 11 (6-14) Blood Urea Nitrogen 16 mg/dL (8-26) Creatinine 1.1 mg/dL (0.7-1.3) Estimated GFR (Cockcroft-Gault) 66.4 BUN/Creatinine Ratio 15 (6-20) Glucose Level 159 mg/dL (70-99) Lactic Acid Level 3.1 mmol/L (0.4-2.0) 1.2 mmol/L (0.4-2.0) Calcium Level 9.6 mg/dL (8.5-10.1) Magnesium Level 2.0 mg/dL (1.8-2.4) Total Bilirubin 1.0 mg/dL (0.2-1.0) Aspartate Amino Transf (AST/SGOT) 25 U/L (15-37) Alanine Aminotransferase (ALT/SGPT) 42 U/L (16-63) Alkaline Phosphatase 71 U/L (46-116) Creatine Kinase 74 U/L (39-308) Creatine Kinase MB (Mass) 2.7 ng/mL (0.0-3.6) Creatine Kinase MB Relative Index % (0-4) Troponin I Quantitative 0.026 ng/mL (0.000-0.055) 0.045 ng/mL (0.000-0.055) 0.038 ng/mL (0.000-0.055) HQ-Uyr-W-Type Natriuretic Peptide 1971 pg/mL (0-124) Total Protein 7.3 g/dL (6.4-8.2) Albumin 3.7 g/dL (3.4-5.0) Albumin/Globulin Ratio 1.0 (1.0-1.7) Lipase 153 U/L (73-393) Urine Collection Type Unknown Urine Color Yellow Urine Clarity Clear Urine pH 6.0 Urine Specific [place] 1.010 Urine Protein Negative mg/dL (NEG-TRACE) Urine Glucose (UA) Negative mg/dL (NEG) Urine Ketones (Stick) Negative mg/dL (NEG) Urine Blood Negative (NEG) Urine Nitrite Negative (NEG) Urine Bilirubin Negative (NEG) Urine Urobilinogen Dipstick 1.0 mg/dL (0.2 mg/dL) Urine Leukocyte Esterase Negative (NEG) Urine RBC 0 /HPF (0-2) Urine WBC 0 /HPF (0-4) Urine Bacteria 0 /HPF (0-FEW) Digoxin Level 0.3 ng/mL (0.9-2.0) Digoxin Last Dose Date Unknown Digoxin Last Dose Time Unknown Images Images CT chest scan shows moderate bilateral pleural effusions. There is no evidence of pulmonary emboli. Assessment/Plan Assessment/Plan 1. Acute on chronic heart failure. Uncertain if systolic or diastolic. Patient had been tapered off Lasix in the recent past. Good response to Lasix overnight. We'll continue to monitor lab. No significant elevation in troponin. We'll check echocardiogram for LV function. 2. Chronic rate controlled atrial fibrillation. Rate is under good control. Digoxin level is low at 0.3 but would continue present treatments. Patient is on anticoagulation. 3. History of right lower extremity DVT. On anticoagulation as above. 4. Hypertension. Blood pressures under better control. 5. Hyperlipidemia. We'll check lab and continue present treatment. 6. Diabetes mellitus. As per the primary service. Thank you for allowing us to participate in the care of your patient. TEJ ALEJANDRE MD Feb 12, 2019 12:09
[2019-02-12] MEDS ORDERED: ANTI-COAG MONITOR BY PHARMACY. MC PRN (12:45)
[2019-02-12] MEDS ORDERED: METOPROLOL SUCC 24HR ER 25 MG TAB.ER.24H. PO SCH (13:30)
[2019-02-12] MEDS: GABAPENTIN 300 MG CAPSULE. PO SCH ×2 (13:30→13:39)
[2019-02-12] MEDS: GLIMEPIRIDE 2 MG TABLET. PO SCH (13:37)
[2019-02-12] MEDS: DIGOXIN 125 MCG TABLET. PO SCH (13:37)
[2019-02-12] MEDS: CYANOCOBALAMIN (VITAMIN B-12) 1,000 MCG TABLET. PO SCH (13:38)
[2019-02-12] MEDS: ASPIRIN CHEWABLE 81 MG TABLET. PO SCH (13:38)
[2019-02-12] MEDS: LISINOPRIL 10 MG TABLET PO SCH (13:39)
[2019-02-12] MEDS: LOSARTAN POTASSIUM 25 MG TABLET. PO SCH (13:39)
[2019-02-12] MEDS ORDERED: WARFARIN 5 MG TABLET. PO SCH (16:00)
[2019-02-12] MEDS ORDERED: INSULIN LISPRO 300 UNITS/3 ML INSULN.PEN. SQ SCH (17:00)
--- NOTE | 2019-02-12 17:00 | NUR ---
Patient had 2 episodes of bradycardia with rate dropping in the 40s that looked like "pauses" ICU nurse shaun reviewed strips and did not believe they were pauses. Dr. Guerin notified of episodes. Orders received to hold metoprolol. Will continue to monitor.
[2019-02-12] MEDS ORDERED: GABAPENTIN 250 MG/5 ML ORAL SOLUTION. PO SCH (21:00)
[2019-02-12] MEDS ORDERED: SIMVASTATIN 10 MG TABLET PO SCH (21:00)
[2019-02-13 03:40] VITALS: BP 164/85
[2019-02-13 07:00] VITALS: BP 163/107
[2019-02-13 07:41] LABS: CALCIUM 8.8 mg/dL (8.5-10.1); GFR 74.1; POTASSIUM 4.4 mmol/L (3.5-5.1)
[2019-02-13 07:42] LABS: PROTHROMBIN TIME PATIENT 21.1 SEC (11.7-14.0)
--- NOTE | 2019-02-13 08:08 | EKG ---
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
[2019-02-13] MEDS: DIGOXIN 125 MCG TABLET. PO SCH (09:00)
[2019-02-13 09:03] LABS: CHOLESTEROL/HDL RATIO 4.3
[2019-02-13] MEDS: LISINOPRIL 10 MG TABLET PO SCH (09:38)
[2019-02-13] MEDS: ASPIRIN CHEWABLE 81 MG TABLET. PO SCH (09:38)
[2019-02-13] MEDS: GABAPENTIN 300 MG CAPSULE. PO SCH (09:38)
[2019-02-13] MEDS: GLIMEPIRIDE 2 MG TABLET. PO SCH (09:38)
[2019-02-13] MEDS: LOSARTAN POTASSIUM 25 MG TABLET. PO SCH (09:39)
[2019-02-13] MEDS: CYANOCOBALAMIN (VITAMIN B-12) 1,000 MCG TABLET. PO SCH (09:39)
[2019-02-13] MEDS: INSULIN LISPRO 300 UNITS/3 ML INSULN.PEN. SQ SCH ×2 (09:42→12:36)
[2019-02-13 10:48] VITALS: BP 183/91
[2019-02-13] MEDS ORDERED: LOSA25TA54 PO (11:06)
--- NOTE | 2019-02-13 11:09 | PDOC3 ---
Discharge Summary Visit Information Date of Admission: Feb 12, 2019 Date of Discharge: Feb 13, 2019 Admitting Diagnosis Comment: Acute on chronic heart failure, systolic Chronic A. fib on anticoagulation/warfarin Obesity Brief Hospital Course Allergies Allergies Coded Allergies Type Severity Reaction Last Updated Verified No Known Drug Allergies 02/11/19 No Vital Signs Vital Signs Date Time Temp Pulse Resp B/P (MAP) Pulse Ox O2 Delivery O2 Flow Rate FiO2 02/13/19 10:48 97.9 79 20 183/91 (121) 96 Nasal Cannula 2.0 97.9 Lab Results Laboratory Tests Test 02/11/19 22:11 02/11/19 22:56 02/12/19 02:15 02/12/19 06:35 White Blood Count 5.5 x10^3/uL (4.0-11.0) Red Blood Count 4.68 x10^6/uL (4.30-5.70) Hemoglobin 15.0 g/dL (13.0-17.5) Hematocrit 43.6 % (39.0-53.0) Mean Corpuscular Volume 93 fL (79-100) Mean Corpuscular Hemoglobin 32 pg (25-35) Mean Corpuscular Hemoglobin Concent 35 g/dL (31-37) Red Cell Distribution Width 14.2 % (11.5-14.5) Platelet Count 118 x10^3/uL (140-400) Neutrophils (%) (Auto) 69 % (31-73) Lymphocytes (%) (Auto) 19 % (24-48) Monocytes (%) (Auto) 7 % (0-9) Eosinophils (%) (Auto) 3 % (0-3) Basophils (%) (Auto) 1 % (0-3) Neutrophils # (Auto) 3.8 x10^3uL (1.8-7.7) Lymphocytes # (Auto) 1.1 x10^3/uL (1.0-4.8) Monocytes # (Auto) 0.4 x10^3/uL (0.0-1.1) Eosinophils # (Auto) 0.2 x10^3/uL (0.0-0.7) Basophils # (Auto) 0.1 x10^3/uL (0.0-0.2) Prothrombin Time 23.2 SEC (11.7-14.0) Prothromb Time International Ratio 2.1 (0.8-1.1) Activated Partial Thromboplast Time 60 SEC (24-38) Sodium Level 140 mmol/L (136-145) Potassium Level 4.6 mmol/L (3.5-5.1) Chloride Level 103 mmol/L (98-107) Carbon Dioxide Level 26 mmol/L (21-32) Anion Gap 11 (6-14) Blood Urea Nitrogen 16 mg/dL (8-26) Creatinine 1.1 mg/dL (0.7-1.3) Estimated GFR (Cockcroft-Gault) 66.4 BUN/Creatinine Ratio 15 (6-20) Glucose Level 159 mg/dL (70-99) Lactic Acid Level 3.1 mmol/L (0.4-2.0) 1.2 mmol/L (0.4-2.0) Calcium Level 9.6 mg/dL (8.5-10.1) Magnesium Level 2.0 mg/dL (1.8-2.4) Total Bilirubin 1.0 mg/dL (0.2-1.0) Aspartate Amino Transf (AST/SGOT) 25 U/L (15-37) Alanine Aminotransferase (ALT/SGPT) 42 U/L (16-63) Alkaline Phosphatase 71 U/L (46-116) Creatine Kinase 74 U/L (39-308) Creatine Kinase MB (Mass) 2.7 ng/mL (0.0-3.6) Creatine Kinase MB Relative Index % (0-4) Troponin I Quantitative 0.026 ng/mL (0.000-0.055) 0.045 ng/mL (0.000-0.055) 0.038 ng/mL (0.000-0.055) VG-Kxw-R-Type Natriuretic Peptide 1971 pg/mL (0-124) Total Protein 7.3 g/dL (6.4-8.2) Albumin 3.7 g/dL (3.4-5.0) Albumin/Globulin Ratio 1.0 (1.0-1.7) Lipase 153 U/L (73-393) Urine Collection Type Unknown Urine Color Yellow Urine Clarity Clear Urine pH 6.0 Urine Specific [place] 1.010 Urine Protein Negative mg/dL (NEG-TRACE) Urine Glucose (UA) Negative mg/dL (NEG) Urine Ketones (Stick) Negative mg/dL (NEG) Urine Blood Negative (NEG) Urine Nitrite Negative (NEG) Urine Bilirubin Negative (NEG) Urine Urobilinogen Dipstick 1.0 mg/dL (0.2 mg/dL) Urine Leukocyte Esterase Negative (NEG) Urine RBC 0 /HPF (0-2) Urine WBC 0 /HPF (0-4) Urine Bacteria 0 /HPF (0-FEW) Digoxin Level 0.3 ng/mL (0.9-2.0) Digoxin Last Dose Date Unknown Digoxin Last Dose Time Unknown Test 02/12/19 12:05 02/12/19 17:07 02/12/19 21:01 02/13/19 06:50 Glucose (Fingerstick) 166 mg/dL (70-99) 115 mg/dL (70-99) 190 mg/dL (70-99) Prothrombin Time 21.1 SEC (11.7-14.0) Prothromb Time International Ratio 1.9 (0.8-1.1) Sodium Level 140 mmol/L (136-145) Potassium Level 4.4 mmol/L (3.5-5.1) Chloride Level 104 mmol/L (98-107) Carbon Dioxide Level 28 mmol/L (21-32) Anion Gap 8 (6-14) Blood Urea Nitrogen 12 mg/dL (8-26) Creatinine 1.0 mg/dL (0.7-1.3) Estimated GFR (Cockcroft-Gault) 74.1 Glucose Level 151 mg/dL (70-99) Calcium Level 8.8 mg/dL (8.5-10.1) Triglycerides Level 108 mg/dL (0-150) Cholesterol Level 132 mg/dL (0-200) LDL Cholesterol, Calculated 79 mg/dL (0-100) VLDL Cholesterol, Calculated 22 mg/dL (0-40) Non-HDL Cholesterol Calculated 101 mg/dL (0-129) HDL Cholesterol 31 mg/dL (40-60) Cholesterol/HDL Ratio 4.3 Test 02/13/19 07:07 Glucose (Fingerstick) 151 mg/dL (70-99) Laboratory Tests Test 02/12/19 12:05 02/12/19 17:07 02/12/19 21:01 02/13/19 06:50 Glucose (Fingerstick) 166 mg/dL (70-99) 115 mg/dL (70-99) 190 mg/dL (70-99) Prothrombin Time 21.1 SEC (11.7-14.0) Prothromb Time International Ratio 1.9 (0.8-1.1) Sodium Level 140 mmol/L (136-145) Potassium Level 4.4 mmol/L (3.5-5.1) Chloride Level 104 mmol/L (98-107) Carbon Dioxide Level 28 mmol/L (21-32) Anion Gap 8 (6-14) Blood Urea Nitrogen 12 mg/dL (8-26) Creatinine 1.0 mg/dL (0.7-1.3) Estimated GFR (Cockcroft-Gault) 74.1 Glucose Level 151 mg/dL (70-99) Calcium Level 8.8 mg/dL (8.5-10.1) Triglycerides Level 108 mg/dL (0-150) Cholesterol Level 132 mg/dL (0-200) LDL Cholesterol, Calculated 79 mg/dL (0-100) VLDL Cholesterol, Calculated 22 mg/dL (0-40) Non-HDL Cholesterol Calculated 101 mg/dL (0-129) HDL Cholesterol 31 mg/dL (40-60) Cholesterol/HDL Ratio 4.3 Test 02/13/19 07:07 Glucose (Fingerstick) 151 mg/dL (70-99) Brief Hospital Course Mr. Sears is a 68 old white male with a BMI 35, admitted for heart failure and chronic A. fib. Already on Coumadin. Already in medications, new medications we need to start his losartan once a day. He tells me he was on Lasix once a day before and PCP cut back to every other day. We did diurese him with Lasix IV with good urine output. We'll defer to cardiology, dose Lasix to go home with today Discharge disposition home independent Consults performed cardiology Procedures performed nothing major line DC time less than 30 minutes Losartan Rx on chart Discharge Information Condition at Discharge: Improved, Stable Disposition/Orders: D/C to Home Scheduled Aspirin (Aspirin) 81 Mg Tab.chew, 81 MG PO DAILY for CARDIAC, (Reported) Entered as Reported by: Lilli Bailon on 02/12/19 3409 Last Action: Continued on 02/12/19 1230 by LAWRENCE MEJIA MD Cyanocobalamin (Vitamin B-12) (Vitamin B-12) 1,000 Mcg Tablet, 1 TAB PO DAILY for REPLACEMENT, #30 Ref 5 (Reported) Entered as Reported by: Lilli Bailon on 02/12/19428 Last Action: Continued on 02/12/191234 by LAWRENCE MEJIA MD Digoxin (Digoxin) 125 Mcg Tablet, 125 MCG PO DAILY for AFIB/HEART FAILURE, (Reported) Entered as Reported by: Lilli Bailon on 02/12/19428 Last Action: Continued on 02/12/191234 by LAWRENCE MEJIA MD Gabapentin (Gabapentin ) 300 Mg Capsule, 300 MG PO DAILY for NEUROGENIC PAIN, (Reported) Entered as Reported by: Lilli Bailon on 02/12/19428 Last Action: Continued on 02/12/191234 by LAWRENCE MEJIA MD Gabapentin (Gabapentin ) 100 Mg Capsule, 150 MG PO HS for NEUROGENIC PAIN, (Reported) Entered as Reported by: Lilli Bailon on 02/12/19428 Last Action: Continued on 02/12/191234 by LAWRENCE MEJIA MD Glimepiride (Glimepiride) 2 Mg Tablet, 2 MG PO DAILY for DIABETIC, (Reported) Entered as Reported by: Lilli Bailon on 02/12/19428 Last Action: Continued on 02/12/191234 by LAWRENCE MEJIA MD Lisinopril (Lisinopril) 10 Mg Tablet, 10 MG PO DAILY for FOR HYPERTENSION, #30 Ref 0 (Reported) Entered as Reported by: Lilli Bailon on 02/12/19428 Last Action: Continued on 02/12/191234 by LAWRENCE MEJIA MD Losartan Potassium (Losartan Potassium ) 25 Mg Tablet, 25 MG PO DAILY for htn MDD 1, #60 Prescribed by: DENITA WHYTE on 02/13/19 1106 Metformin Hcl (Metformin Hcl) 850 Mg Tablet, 850 MG PO BIDWMEALS for ANTI-DIABETIC, Ref 0 (Reported) Entered as Reported by: Lilli Bailon on 02/12/19428 Last Action: Continued on 02/12/191234 by LAWRENCE MEJIA MD Simvastatin (Simvastatin) 10 Mg Tablet, 10 MG PO HS for FOR CHOLESTEROL, #30 Ref 0 (Reported) Entered as Reported by: Lilli Bailon on 02/12/19428 Last Action: Continued on 02/12/191234 by LAWRENCE MEJIA MD Warfarin Sodium (Warfarin Sodium) 5 Mg Tablet, 5 MG PO DAILY for BLOOD THINNER, #30 (Reported) Entered as Reported by: Lilli Bailon on 02/12/19428 Last Action: Converted on 02/12/191234 by LAWRENCE MEJIA MD Warfarin Sodium (Warfarin Sodium) 7.5 Mg Tablet, 7.5 MG PO QTH for BLOOD THINER, (Reported) Entered as Reported by: Lilli Bailon on 02/12/19428 Last Action: Converted on 02/12/191234 by MD ISABELL DASILVA CHERRIE Y MD Feb 13, 2019 11:09
--- NOTE | 2019-02-13 11:56 | NUR ---
SS following up with discharge planning. SS reviewed pt chart. Pt is from home with spouse and is currently requiring oxygen. No discharge needs noted at this time. SS will continue to follow for discharge planning.
--- NOTE | 2019-02-13 13:18 | CARD ---
MR#: [id number] Date of Study: 02/13/2019 Ordering Physician: TEJ ALEJANDRE, Referring Physician: JUJU LUU Tech: Yasmeen Wilkes RDCS APPROVED REPORT EXAM: Two-dimensional and M-mode echocardiogram with Doppler and color Doppler. Other Information Quality : Good INDICATION Congestive Heart Failure 2D DIMENSIONS RVDd2.6 (2.9-3.5cm)Left Atrium(2D)4.0 (1.6-4.0cm) IVSd1.4 (0.7-1.1cm)Aortic Root(2D)3.8 (2.0-3.7cm) LVDd5.7 (3.9-5.9cm)LVOT Diameter2.7 (1.8-2.4cm) PWd0.7 (0.7-1.1cm)LVDs4.6 (2.5-4.0cm) FS (%) 25.0 %SV62.9 ml LVEF(%)50.0 (>50%) Aortic Valve AoV Peak Sj.140.1cm/sAoV VTI26.9cm AO Peak GR.7.9mmHgLVOT Peak Sj.80.9cm/s LVOT VTI 14.77cmAO Mean GR.5mmHg ALBA (VMAX)3.11jm8VJE (VTI)3.14cm2 AI P 1/2 [id number] Mitral Valve MV E Abqlanfg995.4cm/sMV DECEL [id number] MV KZZ64ztARD (PHT)5.61cm2 TDI E/Lateral E'23.7E/Medial E'37.5 Tricuspid Valve TR P. [id number]/sRAP FURMSISD1udEa TR Peak Gr.30neZnFMCD53heIf LEFT VENTRICLE The left ventricle is normal size. There is mild asymmetric septal hypertrophy. Left ventricle systol ic function is mildly decreased. EF 45%. Septal motion consistent with conduction abnormality. The mi d to distal inferior wall and apex are moderately hypokinetic. Tissue Doppler imaging reveals moderat e left ventricular diastolic dysfunction. RIGHT VENTRICLE The right ventricle is normal size. The right ventricular systolic function is normal. ATRIA The left atrium is mildly dilated. The right atrium size is normal. The interatrial septum is intact with no evidence for an atrial septal defect or patent foramen ovale as noted on 2-D or Doppler imagi ng. AORTIC VALVE The aortic valve is calcified but opens well. Doppler and Color Flow revealed mild aortic regurgitati on. There is no significant aortic valvular stenosis. MITRAL VALVE The mitral valve is calcified but opens well. Posterior mitral annular calcification is moderate Ther e is no evidence of mitral valve prolapse. There is no mitral valve stenosis. Doppler and Color-flow revealed mild mitral regurgitation. TRICUSPID VALVE The tricuspid valve is normal in structure and function. Doppler and Color Flow revealed trace tricus pid regurgitation. There is mild pulmonary hypertension. The PA pressure was estimated at 36 mmHg. Th ere is no tricuspid valve stenosis. PULMONIC VALVE The pulmonic valve is not well visualized. Doppler and Color Flow revealed no pulmonic valvular regur gitation. There is no pulmonic valvular stenosis. GREAT VESSELS The aortic root is normal in size. The ascending aorta is mildly dilated at 3.8 cm. The IVC is normal in size and collapses >50% with inspiration. PERICARDIAL EFFUSION There is no evidence of significant pericardial effusion. Critical Notification Critical Value: No <Conclusion> Left ventricle systolic function is mildly decreased. EF 45%. Septal motion consistent with conduction abnormality. The mid to distal inferior wall and apex are mo derately hypokinetic. Doppler and Color Flow revealed trace tricuspid regurgitation. There is mild pulmonary hypertension. The PA pressure was estimated at 36 mmHg. The ascending aorta is mildly dilated at 3.8 cm. Signed by : Gael Gibbons, Electronically Approved : 02/13/2019 13:17:34
[2019-02-13] MEDS ORDERED: FURO20TA3 PO (15:17)
--- NOTE | 2019-02-13 15:30 | NUR ---
Discharge Note: PT DISCHARGED HOME WITH SELF CARE. PT LEFT FACILITY VIA PRIVATE VEHICLE ACCOMPANIED BY AT 1530. PT STABLE AND ALERT UPON DISCHARGE. PT PIV REMOVED FROM L FA WITHOUT COMPLICATIONS, BANDAGE APPLIED. PT EDUCATED ABOUT DISCHARGE MEDICATIONS, FOLLOW-UP INSTRUCTIONS, AND DISCHARGE INSTRUCTIONS, NO CONCERNS VOICED AT THIS TIME. VANCE ZAVALA Discharge instructions and discharge home medications reviewed with Patient and a copy given. All questions have been answered and understanding verbalized.
--- NOTE | 2019-02-13 17:19 | PDOC ---
CARDIO Progress Notes Date and Time Date of Service 02/13/19 Time of Evaluation 1410 Subjective Subjective: No Chest Pain, No shortness of breath, Other (anxious to go home) Vitals Vitals Vital Signs Date Time Temp Pulse Resp B/P (MAP) Pulse Ox O2 Delivery O2 Flow Rate FiO2 02/13/19 10:48 97.9 79 20 183/91 (121) 96 Nasal Cannula 2.0 97.9 Weight Weight [ ] Input and Output Intake and Output Intake and Output 02/13/19 07:00 Intake Total 200 ml Output Total 3000 ml Balance -2800 ml Intake Oral 200 ml Output Urine Total 3000 ml Laboratory Labs Laboratory Tests Test 02/12/19 21:01 02/13/19 06:50 02/13/19 07:07 02/13/19 11:34 Glucose (Fingerstick) 190 mg/dL (70-99) 151 mg/dL (70-99) 172 mg/dL (70-99) Prothrombin Time 21.1 SEC (11.7-14.0) Prothromb Time International Ratio 1.9 (0.8-1.1) Sodium Level 140 mmol/L (136-145) Potassium Level 4.4 mmol/L (3.5-5.1) Chloride Level 104 mmol/L (98-107) Carbon Dioxide Level 28 mmol/L (21-32) Anion Gap 8 (6-14) Blood Urea Nitrogen 12 mg/dL (8-26) Creatinine 1.0 mg/dL (0.7-1.3) Estimated GFR (Cockcroft-Gault) 74.1 Glucose Level 151 mg/dL (70-99) Calcium Level 8.8 mg/dL (8.5-10.1) Magnesium Level 2.1 mg/dL (1.8-2.4) Triglycerides Level 108 mg/dL (0-150) Cholesterol Level 132 mg/dL (0-200) LDL Cholesterol, Calculated 79 mg/dL (0-100) VLDL Cholesterol, Calculated 22 mg/dL (0-40) Non-HDL Cholesterol Calculated 101 mg/dL (0-129) HDL Cholesterol 31 mg/dL (40-60) Cholesterol/HDL Ratio 4.3 Physical Exam HEENT: Neck Supple W Full Motion Chest: Symmetric LUNGS: Clear to Auscultation Heart: S1S2, irregularly irregular Abdomen: Soft N/T, Other (obese) Extremities: Other (1+ bilateral LE edema ) Neurology: alert, oriented, follow commands Assessment Assessment 1. Acute on chronic systolic HF; Echo showed LVEF 45%. Improved following diuresis. 2. Chronic AFIB; rate cotrolled. Intermittent bradycardia with lowest 47 overni ght. Metoprolol discontinued. 3. Acute on chronic heart failure. Uncertain if systolic or diastolic. Patient had been tapered off Lasix in the recent past. Good response to Lasix overnight. We'll continue to monitor lab. No significant elevation in troponin. We'll check echocardiogram for LV function. 4. H/o DVT. US negative for DVT now 5. Hypertension; cotrolled 6. Hyperlipidemia; satin. lipids on goal 7. Diabetes, II Recommendations Continue optimization therapy with lasix, ACEi. Will need routine lasix upon discharge Daily weights along with 2Gm Na diet and 2000cc FR Discussed need for further ischemic workup given risk factors and new finding of cardiomyopathy. Patient not interested in pursuing at this time. Does not want to follow with cardiology here. Will follow up with primary care for cardiology referral Also discussed outpatient event monitor with intermittent bradycardia and AFIB. Patient states he's not into "gadgets" and would like to decline at this time. May discharge from a CV standpoint and follow up with stem roller on an outpatient basis. ARVIN PATEL APRN Feb 13, 2019 17:19
[2019-02-14] MEDS ORDERED: metFORMIN 850 MG TABLET PO SCH (08:00)
[2019-02-16] MEDS ORDERED: WARFARIN 7.5 MG TABLET. PO SCH (16:00)
== END 2019-02-13 15:33 | disposition home or self-care (01) | DRG 292 ==
LOC: ER 21:58 → 2 NORTH 02-12 00:13
PROVIDERS: ADMIT Family Medicine; ATTEND Family Medicine
DX: I11.0 Hypertensive heart disease with heart failure (principal); E87.2 Acidosis; E11.9 Type 2 diabetes mellitus without complications; I50.23 Acute on chronic systolic (congestive) heart failure; E78.00 Pure hypercholesterolemia, unspecified; E78.5 Hyperlipidemia, unspecified; I48.2 Chronic atrial fibrillation; E66.9 Obesity, unspecified; Z79.01 Long term (current) use of anticoagulants; Z79.82 Long term (current) use of aspirin; Z79.899 Other long term (current) drug therapy; Z82.49 Family history of ischemic heart disease and other diseases of the circulatory system; Z83.3 Family history of diabetes mellitus; Z86.718 Personal history of other venous thrombosis and embolism; Z68.35 Body mass index [BMI] 35.0-35.9, adult
CPT/HCPCS: 36415; 71275; 80048; 80053; 80061; 80162; 81001; 82553; 82962; 83605; 83690; 83735; 83880; 84484; 85025; 85610; 85730; 93005; 93306; 93970; 96374; J1815; J1940; Q9967; 99285-25

== ENCOUNTER → 2022-01-27 | Outpatient (CLI) | payer MEDICARE ==
[~2022-01-27] MED LIST: ASPI-630 PO; CYAN-25 PO; DIGO125T3 PO; FURO20TA3 PO; GABA-585 PO; GABA300C18 PO; GLIM2TAB7 PO; LISI10TA16 PO; LOSA25TA54 PO; METF850T8 PO; SIMV10TA15 PO; WARF-31 PO; WARF7.5T45 PO
--- NOTE | 2022-01-27 16:43 | RAD ---
EXAM: BONE SCINTIGRAPHY. HISTORY: Prostate cancer. TECHNIQUE: Following the intravenous injection of 25.4 mCi of Tc-99m labeled methylene diphosphonate (MDP), delayed images of the whole body were performed in anterior and posterior projections. COMPARISON: CT chest 02/11/2019. 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 The kidneys are poorly visualized due t o skeletal uptake. IMPRESSION: 1. Widespread osseous metastatic disease. The Electronically signed by: Cedric Godoy MD (01/27/2022 4:40 PM) [id number]
--- NOTE | 2022-01-27 16:43 | RAD ---
EXAM: BONE SCINTIGRAPHY. HISTORY: Prostate cancer. TECHNIQUE: Following the intravenous injection of 25.4 mCi of Tc-99m labeled methylene diphosphonate (MDP), delayed images of the whole body were performed in anterior and posterior projections. COMPARISON: CT chest 02/11/2019. 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 The kidneys are poorly visualized due t o skeletal uptake. IMPRESSION: 1. Widespread osseous metastatic disease. The Electronically signed by: Cedric Godoy MD (01/27/2022 4:40 PM) [id number]
== END ==
LOC: NM 08:48
PROVIDERS: ATTEND Internal Medicine
DX: C79.51 Secondary malignant neoplasm of bone (principal); C61 Malignant neoplasm of prostate
CPT/HCPCS: 78306; A9503